=== PATIENT | female | born 1935 | race Caucasian/White ===

== ENCOUNTER 2016-11-08 10:07 | Emergency (ER) | payer MEDICARE, BC ==
[2016-11-08 10:34] VITALS: BP 159/72
[2016-11-08] MEDS ORDERED: Ketorolac 30 MG/ML SDV IM ONE (11:06)
--- NOTE | 2016-11-08 11:14 | EDM.PDOC ---
ED HPI GENERAL MEDICAL PROBLEM - General Chief Complaint: Back Pain or Injury Stated Complaint: BACK SPASMS Time Seen by Provider: 11/08/16 11:13 Source of Information: Reports: Patient, Family History Limitations: Reports: No Limitations - History of Present Illness INITIAL COMMENTS - FREE TEXT/NARRATIVE: pt arrived with pain in the left chest area. She was very uncomfortable early this am. She has had this in the past. She has not had an injury. Onset: Today, Other ( started during the nite. ) Duration: Hour(s): Location: Reports: Chest, Other (left chest close to lower T spine. ) Severity: Moderate Associated Symptoms: Reports: Chest Pain, Other ( rt lateral back. ) Middle Back Pain Score (Numeric/FACES): 2 - Related Data Allergies Allergy/AdvReac Type Severity Reaction Status Date / Time No Known Allergies Allergy Verified 11/08/16 10:35 Home Meds: Home Meds Hydrochlorothiazide [Hydrochlorothiazide] 12.5 mg PO DAILY 02/12/14 [History] Ipratropi/Alb 1 unit INH QID 02/12/14 [History] Metoprolol Tartrate [Lopressor] 25 mg PO BID 02/12/14 [History] Aspirin [Halfprin] 81 mg PO DAILY 11/08/16 [History] Fluticasone/Salmeterol [Advair 250-50 Diskus] 1 puff INH DAILY 11/08/16 [History ] Naproxen Sodium [Aleve] 2 tab PO ASDIRECTED 11/08/16 [History] Past Medical History HEENT History: Reports: Hard of Hearing, Impaired Vision Respiratory History: Reports: COPD Hematologic History: Reports: Blood Transfusion(s) Oncologic (Cancer) History: Reports: Other (See Below) Other Oncologic History: skin cancer Dermatologic History: Reports: Other (See Below) Other Dermatologic History: skin cancer - Infectious Disease History Infectious Disease History: Reports: Other (See Below) Other Infectious Disease History: unknown - Past Surgical History GI Surgical History: Reports: Cholecystectomy Female Surgical History: Reports: Hysterectomy Musculoskeletal Surgical History: Reports: Hip Replacement Social & Family History - Tobacco Use Smoking Status *Q: Never Smoker Second Hand Smoke Exposure: No - Caffeine Use Caffeine Use: Reports: Coffee, Soda - Alcohol Use Days Per Week of Alcohol Use: 0 - Recreational Drug Use Recreational Drug Use: No ED ROS GENERAL - Review of Systems Review Of Systems: See Below Constitutional: Reports: No Symptoms HEENT: Reports: No Symptoms Respiratory: Reports: Other (pain in left chest) Cardiovascular: Reports: No Symptoms Endocrine: Reports: No Symptoms GI/Abdominal: Reports: No Symptoms : Reports: No Symptoms Skin: Reports: Other (pain in the rt chest She is tender to palpate in the area. ) Neurological: Reports: No Symptoms Psychiatric: Reports: No Symptoms Hematologic/Lymphatic: Reports: No Symptoms ED EXAM, UPPER BACK/NECK PAIN - Physical Exam Exam: See Below Text/Narrative:: pt has pain in the left post chest. Exam Limited By: No Limitations General Appearance: Alert, Anxious Ears Exam: Normal TMs Nose Exam: Normal Inspection Throat/Mouth Exam: Normal Inspection Head Exam: Atraumatic Neck Exam: Non-Tender Cardiovascular/Respiratory: Regular Rate, Rhythm GI/Abdominal: Soft, Non-Tender Back Exam: Other (tender over the lower t Spine area. She is tender in the rt paraspinous muscle. ) Extremities: Normal Inspection Neurologic: Alert Course - Vital Signs Last Recorded V/S: Last Vital Signs Temp 36.3 C 11/08/16 10:31 Pulse 71 11/08/16 10:31 Resp 16 11/08/16 10:31 BP 159/72 H 11/08/16 10:31 Pulse Ox 92 L 11/08/16 10:31 - Orders/Labs/Meds Labs: Laboratory Tests 11/08/16 11/08/16 Range/Units 11:05 11:05 WBC 6.1 (4.5-11.0) K/uL RBC 4.27 (3.30-5.50) M/uL Hgb 12.5 (12.0-15.0) g/dL Hct 38.1 (36.0-48.0) % MCV 89 (80-98) fL MCH 29 (27-31) pg MCHC 33 (32-36) % Plt Count 197 (150-400) K/uL Neut % (Auto) 64 (36-66) % Lymph % (Auto) 21 L (24-44) % [place] % (Auto) 13 H (2-6) % Eos % (Auto) 1 L (2-4) % Baso % (Auto) 1 (0-1) % Sodium 139 L (140-148) mmol/L Potassium 4.0 (3.6-5.2) mmol/L Chloride 102 (100-108) mmol/L Carbon Dioxide 27 (21-32) mmol/L Anion Gap 14.0 (5.0-14.0) mmol/L BUN 22 H (7-18) mg/dL Creatinine 0.9 (0.6-1.0) mg/dL Est Cr Clr Drug Dosing 45.12 mL/min Estimated GFR (MDRD) 60 (>60) Glucose 95 (74-106) mg/dL Calcium 9.6 (8.5-10.1) mg/dL Meds: Medications Discontinued Medications Generic Name Dose Route Start Last Admin Trade Name Freq PRN Reason Stop Dose Admin Ketorolac Tromethamine 30 mg 11/08/16 11:06 11/08/16 11:28 Toradol IM 11/08/16 11:07 30 mg ONETIME ONE Administration - Re-Assessments/Exams Free Text/Narrative Re-Assessment/Exam: 11/08/16 12:18 xrays revealed degenerative changes in the rt low t Spine. She was given torodol 30mg im. She had normal lab work. 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
--- NOTE | 2016-11-08 11:52 | CR ---
Thoracic Spine 3V HISTORY: Pain COMPARISON: Lateral chest radiograph 07/05/2014. FINDINGS: Moderate degenerative change with disc space narrowing and marginal osteophyte formation. Diffuse bone demineralization. No acute fracture or subluxation.
== END 2016-11-08 12:17 | disposition home or self-care (01) ==
LOC: JP.ED 10:07
DX: M47.894 Other spondylosis, thoracic region (principal); M62.838 Other muscle spasm; J44.9 Chronic obstructive pulmonary disease, unspecified; Z96.649 Presence of unspecified artificial hip joint; Z90.49 Acquired absence of other specified parts of digestive tract; Z90.710 Acquired absence of both cervix and uterus; Z79.82 Long term (current) use of aspirin; Z79.899 Other long term (current) drug therapy; Z85.828 Personal history of other malignant neoplasm of skin
CPT/HCPCS: 36415; 72072; 80048; 85025; 96372; 99283; 99285; J1885

== ENCOUNTER 2018-12-08 14:07 | Emergency (ER) | payer MEDICARE, BC ==
--- NOTE | 2018-12-08 15:48 | EDM.PDOC ---
ED HPI GENERAL MEDICAL PROBLEM - General Chief Complaint: Neuro Symptoms/Deficits Stated Complaint: POSSIBLE STROKE Time Seen by Provider: 12/08/18 15:35 Source of Information: Reports: Patient, Family, Old Records, RN History Limitations: Reports: No Limitations - History of Present Illness INITIAL COMMENTS - FREE TEXT/NARRATIVE: 83 yo female was taking a "hotdish" out of the oven last evening with the goal of setting it down on the table. She recalls everything going white and when her vision came back she was standing about 3 ft from her table still holding the hot rosenberg holders, but the "hotdish" was under the table and on the floor. She has never experienced anything like this and has felt her normal self since then. Is here with her daughter. She did call the clinic and was told to come to the ER. Onset: Sudden Onset Date: 12/07/18 Duration: Hour(s):, Resolved Prior to Arrival Location: Reports: Head, Face Quality: Reports: Other (no pain) Severity: Mild Improves with: Reports: Other (time) Worsens with: Reports: Other (Unknown) Context: Reports: Other (see HPI) Associated Symptoms: Reports: No Other Symptoms Treatments IMPLEMENTATION PROJECT COORDINATOR: Reports: Other (see below) (none) - Related Data Allergies Allergy/AdvReac Type Severity Reaction Status Date / Time eucalyptus Allergy Shortness Verified 12/08/18 15:22 of Breath Home Meds: Home Meds Hydrochlorothiazide 12.5 mg PO DAILY 02/12/14 [History] Ipratropi/Alb 1 unit INH QID 02/12/14 [History] Metoprolol Tartrate [Lopressor] 25 mg PO BID 02/12/14 [History] Aspirin [Halfprin] 81 mg PO DAILY 11/08/16 [History] Fluticasone/Salmeterol [Advair 250-50 Diskus] 1 puff INH DAILY 11/08/16 [History ] Naproxen Sodium [Aleve] 2 tab PO ASDIRECTED 11/08/16 [History] Past Medical History HEENT History: Reports: Cataract, Hard of Hearing, Impaired Vision Respiratory History: Reports: COPD MFT History: Reports: Hematologic History: Reports: Blood Transfusion(s) Oncologic (Cancer) History: Reports: Other (See Below) Other Oncologic History: skin cancer Dermatologic History: Reports: Other (See Below) Other Dermatologic History: skin cancer - Infectious Disease History Infectious Disease History: Reports: Other (See Below) Other Infectious Disease History: unknown - Past Surgical History HEENT Surgical History: Reports: Cataract Surgery, Other (See Below) Other HEENT Surgeries/Procedures: surgery on right ear drum GI Surgical History: Reports: Cholecystectomy Female Surgical History: Reports: Hysterectomy Musculoskeletal Surgical History: Reports: Hip Replacement Social & Family History - Tobacco Use Smoking Status *Q: Never Smoker - Caffeine Use Caffeine Use: Reports: Coffee, Soda - Recreational Drug Use Recreational Drug Use: No ED ROS GENERAL - Review of Systems Review Of Systems: See Below Constitutional: Reports: No Symptoms HEENT: Reports: Vision Change (transient) Respiratory: Reports: No Symptoms Cardiovascular: Reports: No Symptoms GI/Abdominal: Reports: No Symptoms : Reports: No Symptoms Musculoskeletal: Reports: No Symptoms Skin: Reports: No Symptoms Neurological: Reports: Other (transient loss of awareness) Psychiatric: Reports: No Symptoms ED EXAM, NEURO - Physical Exam Exam: See Below Exam Limited By: No Limitations General Appearance: Alert, WD/WN, No Apparent Distress Eye Exam: Bilateral Eye: Normal Inspection Ears: Normal External Exam, Normal Canal, Normal TMs, Hearing Loss Nose: Normal Inspection, No Blood Throat/Mouth: Normal Inspection, Normal Lips, Normal Oropharynx, Normal Voice, No Airway Compromise Head Exam: Atraumatic, Normocephalic Neck: Normal Inspection Respiratory/Chest: No Respiratory Distress, Lungs Clear, Normal Breath Sounds, No Accessory Muscle Use Cardiovascular: Regular Rate, Rhythm GI/Abdominal: Normal Bowel Sounds, Soft, Non-Tender, No Distention Neurological: Alert, Normal Mood/Affect, Normal Dorsiflexion, CN II-XII Intact, No Motor/Sensory Deficits, Oriented x 3 Back Exam: Normal Inspection Extremities: Normal Inspection, Normal Range of Motion, Non-Tender, No Pedal Edema Psychiatric: Normal Affect, Normal Mood Skin Exam: Warm, Dry, Intact, Normal Color, No Rash Course - Vital Signs Last Recorded V/S: Last Vital Signs Temp 36.4 C 12/08/18 15:19 Pulse 68 12/08/18 15:19 Resp 16 12/08/18 15:19 BP 177/83 H 12/08/18 15:19 Pulse Ox 59 L 12/08/18 15:19 - Orders/Labs/Meds Orders: Active Orders 24 hr Category Date Time Status UA W/MICROSCOPIC [URIN] Stat Lab 12/08/18 15:36 Ordered Labs: Laboratory Tests 12/08/18 12/08/18 Range/Units 15:46 15:46 WBC 7.4 (4.5-11.0) K/uL RBC 4.07 (3.30-5.50) M/uL Hgb 11.7 L (12.0-15.0) g/dL Hct 37.0 (36.0-48.0) % MCV 91 (80-98) fL MCH 29 (27-31) pg MCHC 32 (32-36) % Plt Count 203 (150-400) K/uL Sodium 138 L (140-148) mmol/L Potassium 4.0 (3.6-5.2) mmol/L Chloride 101 (100-108) mmol/L Carbon Dioxide 26 (21-32) mmol/L Anion Gap 15.0 H (5.0-14.0) mmol/L BUN 22 H (7-18) mg/dL Creatinine 0.9 (0.6-1.0) mg/dL Est Cr Clr Drug Dosing 43.56 mL/min Estimated GFR (MDRD) 60 (>60) Glucose 95 (74-106) mg/dL Calcium 10.6 H (8.5-10.1) mg/dL Troponin I < 0.017 (0.000-0.056) ng/mL Departure - Departure Time of Disposition: 16:30 Disposition: Home, Self-Care 01 Condition: Good Clinical Impression: TIA (transient ischemic attack) - Discharge Information *PRESCRIPTION DRUG MONITORING PROGRAM REVIEWED*: No *COPY OF PRESCRIPTION DRUG MONITORING REPORT IN PATIENT KAMILLA: No Instructions: Transient Ischemic Attack, [id number] Referrals: Jayant Taveras MD [Primary Care Provider] - Forms: ED Department Discharge Additional Instructions: Continue your current medications, including your aspirin. Avoid added salt. Recheck with your provider in the next 7-10 days. Return as needed. - My Orders Last 24 Hours: My Active Orders 12/08/18 15:36 UA W/MICROSCOPIC [URIN] Stat - Assessment/Plan Last 24 Hours: My Active Orders 12/08/18 15:36 UA W/MICROSCOPIC [URIN] Stat
[2018-12-08 16:26] VITALS: BP 164/76
== END 2018-12-08 16:50 | disposition home or self-care (01) ==
LOC: JP.ED 14:07
DX: G45.9 Transient cerebral ischemic attack, unspecified (principal); J44.9 Chronic obstructive pulmonary disease, unspecified; Z79.82 Long term (current) use of aspirin; Z79.899 Other long term (current) drug therapy; Z91.09 Other allergy status, other than to drugs and biological substances
CPT/HCPCS: 36415; 80048; 84484; 85027; 99283

== ENCOUNTER 2022-10-16 10:44 | Emergency (ER) | payer MEDICARE, BC ==
[2022-10-16 11:06] VITALS: BP 101/56; PULSE 81
[2022-10-16 12:01] LABS: BASOPHILS PERCENT AUTO 0.2 % (0.1-1.3); HEMATOCRIT 30.9 % (34.3-46.0); HEMOGLOBIN 10.6 g/dL (11.2-15.5); IMMATURE GRAN ABSOLUTE AUTO 0.04 K/uL (0.00-0.23); IMMATURE GRAN PERCENT AUTO 0.3 % (0.0-0.7); LYMPHOCYTES ABSOLUTE AUTO 0.91 K/uL (0.8-3.3); LYMPHOCYTES PERCENT AUTO 7.8 % (11.4-47.7); MEAN CORPUSCULAR HEMOGLOBIN 30.4 pg (31.6-35.5); MEAN CORPUSCULAR HGB CONC 34.3 g/dL (31.6-35.5); MEAN CORPUSCULAR VOLUME 88.5 fL (81.4-99.0); MONOCYTES ABSOLUTE AUTO 0.68 K/uL (0.20-0.90); MONOCYTES PERCENT AUTO 5.9 % (3.3-12.6); NEUTROPHILS ABSOLUTE AUTO 9.96 K/uL (1.0-7.6); NEUTROPHILS PERCENT AUTO 85.8 % (40.0-78.1); PLATELET COUNT,PLT 243 K/uL (130-375); RED BLOOD CELL COUNT 3.49 M/uL (3.77-5.24); WHITE BLOOD CELL COUNT,WBC 11.6 K/uL (3.2-11.0)
[2022-10-16 12:02] LABS: BASOPHILS ABSOLUTE AUTO 0.02 K/uL (0.00-0.10)
[2022-10-16 12:19] LABS: CALCIUM 9.4 mg/dL (8.5-10.1); CREATININE 1.1 mg/dL (0.6-1.0); EST CRCL DRUG DOSING (CG) 31.64 mL/min; POTASSIUM,K 3.9 mmol/L (3.6-5.2)
[2022-10-16 12:26] LABS: ANION GAP 13.9 mmol/L (5.0-14.0)
== END 2022-10-16 12:54 | disposition home or self-care (01) ==
LOC: JP.ED 10:44
DX: R11.2 Nausea with vomiting, unspecified (principal); J44.9 Chronic obstructive pulmonary disease, unspecified; Z91.048 Other nonmedicinal substance allergy status; Z79.82 Long term (current) use of aspirin; Z86.16 Personal history of COVID-19; Z87.891 Personal history of nicotine dependence
CPT/HCPCS: 36415; 80048; 82272; 85025; 99284